=== PATIENT | female | born 1975 ===

== ENCOUNTER 2024-01-10 12:05 | Outpatient (CLI) | payer OTHER, SELFPAY | END 2024-01-10 12:06 | disposition home or self-care (01) | LOC: NFLDREF 01-11 23:32 | PROVIDERS: Visit Provider Family Medicine | DX: N39.0 Urinary tract infection, site not specified (principal); R39.9 Unspecified symptoms and signs involving the genitourinary system | CPT/HCPCS: 87086; 87186 ==